=== PATIENT | female | born 1980 | race Caucasian/White ===

== ENCOUNTER 2018-03-02 08:33 | Emergency (ER) | payer MEDICAID ==
[2018-03-02 09:17] LABS: ABSOLUTE BASOPHILS # (AUTO) 0.1 10^3/uL (0.0-0.2); ABSOLUTE EOSINOPHILS # (AUTO) 0.1 10^3/uL (0.0-0.6); ABSOLUTE LYMPHOCYTES (AUTO) 2.2 10^3/uL (0.5-4.7); ABSOLUTE MONOCYTES (AUTO) 0.6 10^3/uL (0.1-1.4); ABSOLUTE NEUT (AUTO) 8.7 10^3/uL (1.7-8.2); BASOPHILS % (AUTO) 1.1 % (0-2); EOSINOPHILS % (AUTO) 0.9 % (0-6); HEMATOCRIT 43.3 % (36.0-47.0); HEMOGLOBIN 14.5 g/dL (12.0-15.5); MEAN CORPUSCULAR HEMOGLOBIN 27.6 pg (27.0-33.4); MEAN CORPUSCULAR HGB CONC 33.5 g/dL (32.0-36.0); MEAN CORPUSCULAR VOLUME 82 fl (80-97); MONOCYTES % (AUTO) 5.2 % (3-13); PLATELET COUNT 277 10^3/uL (150-450); RED BLOOD COUNT 5.26 10^6/uL (3.72-5.28); RED CELL DISTRIBUTION WIDTH 13.6 % (11.5-14.0); SEGMENTED NEUTROPHILS % (AUTO) 73.8 % (42-78); TOTAL CELLS COUNTED % (AUTO) 100 %; WHITE BLOOD COUNT 11.8 10^3/uL (4.0-10.5)
--- NOTE | 2018-03-02 09:17 | ER Document Report ---
ED GI/ - General Chief Complaint: Vag Bleeding, +preg <12wks Stated Complaint: VAGINAL BLEEDING Time Seen by Provider: 03/02/18 09:10 Mode of Arrival: Ambulatory Information source: Patient Notes: Chief complaint: Vaginal bleeding History of complain:( obtained from----patient) 37 years old female with second , 7 weeks, having vaginal spotting and bleeding for the last 2 days. In fact she had a bleed 3 days ago and again today. No abdominal cramps. No nausea vomiting. No constitutional symptoms. Onset: Gradual Duration: 3 days Severity: Mild Quality: Not applicable Context: Exacerbating factor and relieving factors: REVIEW OF SYSTEMS: CONSTITUTIONAL : Denies fever, chills, or sweats. Denies recent illness. EENT: Denies eye, ear, throat, or mouth pain or symptoms. Denies nasal or sinus congestion or discharge. Denies throat, tongue, or mouth swelling or difficulty swallowing. CARDIOVASCULAR: Denies chest pain. Denies palpitations or racing or irregular heart beat. Denies ankle edema. RESPIRATORY: Denies cough, cold, or chest congestion. Denies shortness of breath, difficulty breathing, or wheezing. GASTROINTESTINAL: Denies distention. Denies nausea, vomiting, or diarrhea. Denies blood in vomitus, stools, or per rectum. Denies black, tarry stools. Denies constipation. GENITOURINARY: Denies difficulty urinating, painful urination, burning, frequency, blood in urine, or discharge. FEMALE GENITOURINARY: Denies vaginal bleeding, heavy or abnormal periods, irregular periods. Denies vaginal discharge or odor. MUSCULOSKELETAL: Denies back or neck pain or stiffness. Denies joint pain or swelling. SKIN: Denies rash, lesions or sores. HEMATOLOGIC : Denies easy bruising or bleeding. LYMPHATIC: Denies swollen, enlarged glands. NEUROLOGICAL: Denies confusion or altered mental status. Denies passing out or loss of consciousness. Denies dizziness or lightheadedness. Denies headache. Denies weakness or paralysis or loss of use of either side. Denies problems with gait or speech. Denies sensory loss, numbness, or tingling. Denies seizures. PSYCHIATRIC: Denies anxiety or stress. Denies depression, suicidal ideation, or homicidal ideation. ALL OTHER SYSTEMS REVIEWED AND NEGATIVE. PHYSICAL EXAMINATION: GENERAL: Well-appearing, well-nourished and in no acute distress. HEAD: Atraumatic, normocephalic. EYES: Pupils equal round and reactive to light, extraocular movements intact, conjunctiva are normal. ENT: Nares patent, oropharynx clear without exudates. Moist mucous membranes. NECK: Normal range of motion, supple without lymphadenopathy LUNGS: Breath sounds clear to auscultation bilaterally and equal. No wheezes rales or rhonchi. HEART: Regular rate and rhythm without murmurs ABDOMEN: Soft, nontender, nondistended abdomen. No guarding, no rebound. No masses appreciated. Examination of genitals-deferred Musculoskeletal: Normal range of motion, no pitting or edema. No cyanosis. NEUROLOGICAL: Cranial nerves grossly intact. Normal speech, normal gait. Normal sensory, motor exams PSYCH: Normal mood, normal affect. SKIN: Warm, Dry, normal turgor, no rashes or lesions noted. Dictation was performed using [employer] voice recognition software TRAVEL OUTSIDE OF THE [place] IN LAST 30 DAYS: No - HPI Notes: 03/02/18 09:15 Dictated - Related Data Allergies/Adverse Reactions: No Known Allergies Allergy (Verified 03/02/18 08:34) Past Medical History - General Information source: Patient - Social History Smoking Status: Never Smoker Chew tobacco use (# tins/day): No Frequency of alcohol use: None Drug Abuse: None Lives with: Family Family History: Reviewed & Not Pertinent, Other - Kidney stones run in the family Patient has suicidal ideation: No Patient has homicidal ideation: No Endocrine Medical History: Reports: Hx Diabetes Mellitus Type 2 - IDDM Renal/ Medical History: Denies: Hx Peritoneal Dialysis Review of Systems - Review of Systems Notes: Dictated Physical Exam - Vital signs Vitals: Temp Pulse Resp BP Pulse Ox 98.3 F 104 H 14 130/76 H 98 03/02/18 08:44 03/02/18 08:44 03/02/18 08:44 03/02/18 08:44 03/02/18 08:44 - Notes Notes: Dictated Course - Vital Signs Vital signs: Temp Pulse Resp BP Pulse Ox 98.3 F 104 H 14 130/76 H 98 03/02/18 08:44 03/02/18 08:44 03/02/18 08:44 03/02/18 08:44 03/02/18 08:44 - Laboratory Result Diagrams: 03/02/18 09:03 Laboratory results interpreted by me: 03/02/18 03/02/18 03/02/18 09:03 09:03 09:03 WBC 11.8 H Absolute Neutrophils 8.7 H Beta HCG, Quant 19254.00 H Urine Glucose (UA) >=500 H Urine Ketones TRACE H Urine Blood LARGE H Ur Leukocyte Esterase TRACE H - Diagnostic Test Radiology reviewed: Reports reviewed - Radiology report reviewed, no heart sound activity, 6 feet old yolk sac, subchorionic hemorrhage. Discharge - Discharge Clinical Impression: Threatened affecting intrauterine Condition: Fair Disposition: HOME, SELF-CARE Instructions: Threatened Abortions ( Patients) Referrals: KATIANA SCHAEFFER, MAMIE [NO LOCAL MD] - Follow up as needed
[2018-03-02 09:39] LABS: APPEARANCE,URINE SLIGHTLY-CLOUDY; BILIRUBIN,URINE NEGATIVE (NEGATIVE); COLOR,URINE YELLOW; GLUCOSE, URINE >=500 mg/dL (NEGATIVE); KETONES,URINE TRACE mg/dL (NEGATIVE); LEUKOCYTE ESTERASE,URINE TRACE (NEGATIVE); NITRITE,URINE NEGATIVE (NEGATIVE); PROTEIN,URINE NEGATIVE (NEGATIVE); URINE SPECIFIC GRAVITY 1.024; UROBILINOGEN,URINE NEGATIVE mg/dL (<2.0)
--- NOTE | 2018-03-02 10:50 | RADIOLOGY REPORT (SQ) ---
EXAM DESCRIPTION: U/S OB TRANSVAGINAL W/O DOP COMPLETED DATE/TIME: 03/02/2018 10:32 am REASON FOR STUDY: and vaginal bleeding COMPARISON: None. TECHNIQUE: Endovaginal static and realtime grayscale images acquired of the pelvis. Additional selec rober spectral and color Doppler images recorded. All images stored on PACs. [facility],286 CLINICAL DATES: Last menses 12/24/2017 LIMITATIONS: None. FINDINGS: An intrauterine gestational sac is present containing a yolk sac and tiny embryo. No embr yo cardiac activity was seen by color flow or M-mode Doppler. ULTRASOUND EGA: 6 weeks 0 days ULTRASOUND ALL: 10/30/2015 CRL: 0.38 cm FHR: Not detected. SUBCHORIONIC BLEED: Yes SIZE OF BLEED: 4 x 3 cm UTERUS: No fibroids. Uterus is 10.5 x 7 x 7 cm in size CERVICAL LENGTH: 3 cm Closed. RIGHT ADNEXA: Not visualized due to adnexal bowel gas LEFT ADNEXA: Not visualized due to adnexal bowel gas FREE FLUID: None. OTHER: No other significant finding. IMPRESSION: Intrauterine gestational sac is present containing a yolk sac and tiny embryo without ca rdiac activity identified. Large subchorionic hemorrhage EGA 6 weeks 0 days Trimester of : First - 0 to 13 weeks. TECHNICAL DOCUMENTATION: JOB ID: [id number] [employer]- All Rights Reserved rev Reading location - IP/workstation name: [email or web address]
[2018-03-02 12:17] VITALS: BP 131/84
== END 2018-03-02 12:18 | disposition home or self-care (01) ==
LOC: ER 08:33
DX: O03.9 Complete or unspecified spontaneous abortion without complication (principal); Z3A.01 Less than 8 weeks gestation of pregnancy
CPT/HCPCS: 36415; 76817; 81001; 84702; 85025; 99284

== ENCOUNTER 2018-07-20 07:11 | Emergency (ER) | payer MEDICAID ==
[2018-07-20] MEDS ORDERED: ASPIRIN 81 MG TABLET, CHEWABLE PO ONE (09:38)
[2018-07-20] MEDS ORDERED: NORMAL SALINE 1000 ML 1,000 ML IV ONE (09:39)
[2018-07-20 09:53] LABS: ABSOLUTE BASOPHILS # (AUTO) 0.1 10^3/uL (0.0-0.2); ABSOLUTE LYMPHOCYTES (AUTO) 1.7 10^3/uL (0.5-4.7); ABSOLUTE MONOCYTES (AUTO) 0.6 10^3/uL (0.1-1.4); ABSOLUTE NEUT (AUTO) 9.2 10^3/uL (1.7-8.2); BASOPHILS % (AUTO) 0.6 % (0-2); EOSINOPHILS % (AUTO) 0.4 % (0-6); HEMATOCRIT 42.9 % (36.0-47.0); HEMOGLOBIN 14.6 g/dL (12.0-15.5); MEAN CORPUSCULAR HEMOGLOBIN 27.8 pg (27.0-33.4); MEAN CORPUSCULAR HGB CONC 34.1 g/dL (32.0-36.0); MEAN CORPUSCULAR VOLUME 81 fl (80-97); MONOCYTES % (AUTO) 5.1 % (3-13); PLATELET COUNT 265 10^3/uL (150-450); RED BLOOD COUNT 5.27 10^6/uL (3.72-5.28); RED CELL DISTRIBUTION WIDTH 13.5 % (11.5-14.0); SEGMENTED NEUTROPHILS % (AUTO) 78.9 % (42-78); TOTAL CELLS COUNTED % (AUTO) 100 %; WHITE BLOOD COUNT 11.6 10^3/uL (4.0-10.5)
[2018-07-20 10:12] LABS: ALANINE AMINOTRANSFERASE 30 U/L (9-52); ALBUMIN 4.5 g/dL (3.5-5.0); ALKALINE PHOSPHATASE 82 U/L (38-126); ANION GAP 13 (5-19); ASPARTATE AMINO TRANSFERASE 29 U/L (14-36); BILIRUBIN,DIRECT 0.2 mg/dL (0.0-0.4); BILIRUBIN,TOTAL 0.5 mg/dL (0.2-1.3); BLOOD UREA NITROGEN 8 mg/dL (7-20); CALCIUM 9.7 mg/dL (8.4-10.2); CARBON DIOXIDE 24 mmol/L (22-30); CHLORIDE 99 mmol/L (98-107); CREATINE KINASE 46 U/L (30-135); GLUCOSE 336 mg/dL (75-110); POTASSIUM 4.4 mmol/L (3.6-5.0); SODIUM 136.3 mmol/L (137-145); TOTAL PROTEIN 7.5 g/dL (6.3-8.2)
[2018-07-20 10:23] LABS: CREATINE KINASE MB 0.32 ng/mL (<4.55)
[2018-07-20 10:26] LABS: TROPONIN I < 0.012 ng/mL
--- NOTE | 2018-07-20 11:13 | EKG REPORT ---
SEVERITY:- BORDERLINE ECG - SINUS TACHYCARDIA INFERIOR Q WAVES, PROBABLY NORMAL VARIATION BORDERLINE T ABNORMALITIES, DIFFUSE LEADS : Confirmed by: Dara Stanford 20-Jul-2018 11:12:06
--- NOTE | 2018-07-20 11:46 | RADIOLOGY REPORT (SQ) ---
EXAM DESCRIPTION: VENOUS UNILATERAL LOWER COMPLETED DATE/TIME: 07/20/2018 11:14 am REASON FOR STUDY: left foot swelling COMPARISON: None. TECHNIQUE: Dynamic and static prabhakar scale and color images acquired of the left leg venous system. Se lected spectral images acquired with additional compression and augmentation maneuvers. The contralat eral common femoral vein and saphenofemoral junction were also imaged. Images stored on PACS. LIMITATIONS: None. FINDINGS: LEFT COMMON FEMORAL: Normal phasicity, compression and augmentation. No visualized echogenic material on g ray scale. No defects on color images. FEMORAL: Normal compression and augmentation. No visualized echogenic material on prabhakar scale. No defe cts on color images. POPLITEAL: Normal compression, augmentation. No visualized echogenic material on prabhakar scale. No defec ts on color images. CALF VESSELS: Normal compression, augmentation. No visualized echogenic material on prabhakar scale. No de fects on color images. GSV and SSV: Normal compression, augmentation. No visualized echogenic material on prabhakar scale. No def ects on color images. ANY DEEP VENOUS INSUFFICIENCY: No reflux on Valsalva ANY EVIDENCE OF POPLITEAL CYST: No. OTHER: No other significant finding. RIGHT COMMON FEMORAL VEIN AND SAPHENOFEMORAL JUNCTION: Normal phasicity, compression and augmentation. No visualized echogenic material on prabhakar scale. No de fects on color images. IMPRESSION: NO EVIDENCE OF DVT OR SVT IN THE LEFT LEG. TECHNICAL DOCUMENTATION: JOB ID: [id number] [employer]- All Rights Reserved Reading location - IP/workstation name: [email or web address]
--- NOTE | 2018-07-20 12:13 | RADIOLOGY REPORT (SQ) ---
EXAM DESCRIPTION: CTA CHEST COMPLETED DATE/TIME: 07/20/2018 11:54 am REASON FOR STUDY: SOB, tachycardia, r/o PE COMPARISON: None. TECHNIQUE: CT scan of the chest performed using helical scanning technique with dynamic intravenous contrast injection. Images reviewed with lung, soft tissue and bone windows. Reconstructed coronal and sagittal MPR images reviewed. Additional 3 dimensional post-processing performed to develop Maximal Intensity Projection images (SC P). All images stored on PACS. All CT scanners at this facility use dose modulation, iterative reconstruction, and/or weight based d osing when appropriate to reduce radiation dose to as low as reasonably achievable (ALARA). [facility]: Dose Right [facility]: CareDose [facility]: Dose Right [facility]: Teradose 4D [facility]: BadAbroad CONTRAST TYPE AND DOSE: contrast/concentration: Isovue 350.00 mg/ml; Total Contrast Delivered: 86.0 ml; Total Saline Delivered: 80.0 ml Contrast bolus adequate for pulmonary arteries and aorta. RENAL FUNCTION: GFR > 60. RADIATION DOSE: CT Rad equipment meets quality standard of care and radiation dose reduction techniq ues were employed. CTDIvol: 7.4 - 37.2 mGy. DLP: 1380 mGy-cm. . LIMITATIONS: None. FINDINGS: LUNGS AND PLEURA: No masses, infiltrates, or pneumothorax. No pleural effusions or pleura l calcifications. AORTA AND GREAT VESSELS: No aneurysm. No dissection. HEART: No pericardial effusion. No significant coronary artery calcifications. PULMONARY ARTERIES: No emboli visualized in the main pulmonary arteries or the segmental branches. HILAR AND MEDIASTINAL STRUCTURES: No identified masses or abnormal nodes. HARDWARE: None in the chest. UPPER ABDOMEN: No significant findings. Limited exam. THYROID AND OTHER SOFT TISSUES: No masses. No adenopathy. BONES: No acute or significant finding. 3D MIPS: Confirm above findings. OTHER: No other significant finding. IMPRESSION: NORMAL CTA OF THE CHEST. NO PULMONARY EMBOLI. COMMENT: Quality ID # [id number]: Final reports with documentation of one or more dose reduction techniques (e.g., Automated exposure control, adjustment of the mA and/or kV according to patient size, use of iterative reconstruction technique) TECHNICAL DOCUMENTATION: JOB ID: [id number] 1999 [employer] ([employer])- All Rights Reserved Reading location - IP/workstation name: [email or web address]
[2018-07-20 14:03] VITALS: BP 140/92
--- NOTE | 2018-07-20 16:21 | ER Document Report ---
Entered by ELIUD AVALOS SCRIBE 07/20/18 0951 Acting as scribe for:ANDRE MACIEL DO ED Cardiac - General Chief Complaint: Chest Pain Stated Complaint: CHEST PAIN Time Seen by Provider: 07/20/18 08:26 Information source: Patient Notes: 38-year-old female who presents to the emergency department today with complaints of lateral chest wall pain with an associated near syncopal episode. Patient states that her chest pain is exacerbated with upper extremity movement and exertion. Patient states she had a cold last week with a cough that has since subsided. Patient has had associated nausea, vomiting, heart palpitations, and left lower extremity swelling. Patient denies any cough cur rently, fevers, abdominal pain, or recent travel. TRAVEL OUTSIDE OF THE [place] IN LAST 30 DAYS: No - Related Data Allergies/Adverse Reactions: No Known Allergies Allergy (Verified 07/20/18 07:12) Past Medical History - General Information source: Patient - Social History Smoking Status: Never Smoker Cigarette use (# per day): No Frequency of alcohol use: None Drug Abuse: None Lives with: Family Family History: Reviewed & Not Pertinent, Other - Kidney stones run in the family Endocrine Medical History: Reports: Hx Diabetes Mellitus Type 2 - IDDM Past Surgical History: Reports: Hx Section Review of Systems - Review of Systems Constitutional: denies: Fever EENT: No symptoms reported Cardiovascular: See HPI, Chest pain, Palpitations, Syncope - near Respiratory: denies: Cough Gastrointestinal: See HPI, Nausea, Vomiting. denies: Abdominal pain Genitourinary: No symptoms reported Female Genitourinary: No symptoms reported Musculoskeletal: No symptoms reported Skin: No symptoms reported Hematologic/Lymphatic: No symptoms reported Neurological/Psychological: No symptoms reported -: Yes All other systems reviewed and negative Physical Exam - Vital signs Vitals: Temp Pulse Resp BP Pulse Ox 99.1 F 111 H 18 140/86 H 100 07/20/18 07:30 07/20/18 07:30 07/20/18 07:30 07/20/18 07:30 07/20/18 07:30 - Notes Notes: PHYSICAL EXAM GENERAL: Alert, interacts well. No acute distress. Pulse oximeter at bedside shows saturation of 99% with good waveform on room air, no hypoxia per my interpretation. HEAD: Normocephalic, atraumatic. EYES: Pupils equal, round, and reactive to light. Extraocular movements intact. ENT: Oral mucosa moist, tongue midline. NECK: Full range of motion. Supple. Trachea midline. LUNGS: Clear to auscultation bilaterally, no wheezes, rales, or rhonchi. No respiratory distress. HEART: Tachycardic into the 120s with a normal rhythm. No murmurs, gallops, or rubs. ABDOMEN: Soft, non-tender. Non-distended. Bowel sounds present in all 4 qu adrants. No guarding, rigidity, or rebound. EXTREMITIES: Moves all 4 extremities spontaneously. No edema, radial and dorsalis pedis pulses 2/4 bilaterally. No cyanosis. NEUROLOGICAL: Alert and oriented x3. Normal speech. PSYCH: Normal affect, normal mood. SKIN: Warm, dry, normal turgor. No rashes or lesions noted. Course - Re-evaluation Re-evalutation: 07/20/18 13:33 CBC shows mild leukocytosis, CMP shows mildly low sodium at 136.3, cardiac enzymes negative, hCG negative, CT angiogram of the chest does not show PE or pneumonia, this was ordered given the shortness of breath, leg swelling and tachycardia, venous Doppler study did not show a DVT either. Cardiac enzymes are negative despite the pressure on her chest. Patient is feeling much better after sitting in the bed and resting, she has but not been hypoxic since she has been here. Patient will be discharged to home. Suspect that this is more musculoskeletal in etiology and patient will be given muscle relaxers to help as well as a cough suppressant in the form of Tessalon Perles. 07/20/18 16:21 Patient knows she is a diabetic. She was encouraged to follow-up with primary care physician as an outpatient for outpatient treatment. No medications were initiated here. - Vital Signs Vital signs: Temp Pulse Resp BP Pulse Ox 99.1 F 111 H 26 H 140/92 H 98 07/20/18 07:30 07/20/18 07:30 07/20/18 13:00 07/20/18 13:00 07/20/18 13:00 - Laboratory Result Diagrams: 07/20/18 09:16 07/20/18 09:16 Laboratory results interpreted by me: 07/20/18 07/20/18 09:16 09:16 WBC 11.6 H Seg Neutrophils % 78.9 H Absolute Neutrophils 9.2 H Sodium 136.3 L Creatinine 0.41 L Glucose 336 H - EKG Interpretation by Me Additional EKG results interpreted by me: 07/20/18 13:38 EKG shows sinus tachycardia at a rate of 115, normal axis, normal intervals, poor R wave progression for possible anterior scar prompted acute coronary syndrome workup, no ST segment elevations or depressions, there are T wave inversions noted in lead III and aVF F as well as flattening in V3 through V5 and inversions in V6 per my interpretation. Discharge - Discharge Clinical Impression: Chest wall pain Condition: Stable Disposition: HOME, SELF-CARE Additional Instructions: Chest Wall Pain Your chest pain has been diagnosed as coming from the chest wall. This is often caused by straining the muscles or joints in the chest during physical activity, direct trauma, coughing, or vigorous vomiting. Persons with arthritis are especially prone to this type of pain, due to inflammation of the cartilage joints near the breast bone. Occasionally, no cause can be found. Rest from strenuous physical activity. This kind of chest pain is usually made worse by movement of the chest. Depending on the symptoms, we may prescribe medicine for pain, muscle relaxation, and antiinflammatory effects. If the pain is new, and seems to be due to muscle strain, cold packs can help. Otherwise, apply gentle warmth to the painful area for 15 minutes every hour or two. You should contact the doctor immediately if things change. Further evaluation is needed if you develop a fever or cough, if the nature of the pain changes, or if you become short of breath. Prescriptions: Benzonatate [Tessalon Perles 100 mg Capsule] 100 mg PO ASDIR PRN #40 capsule PRN Reason: Methocarbamol [Robaxin 750 mg Tablet] 750 mg PO ASDIR PRN #40 tablet PRN Reason: Forms: Return to Work Scribe Attestation: 07/20/18 16:21 I personally performed the services described in the documentation, reviewed and edited the documentation which was dictated to the scribe in my presence, and it accurately records my words and actions. I personally performed the services described in the documentation, reviewed and edited the documentation which was dictated to the scribe in my presence, and it accurately records my words and actions.
== END 2018-07-20 13:30 | disposition home or self-care (01) ==
LOC: ER 07:11
DX: R07.9 Chest pain, unspecified (principal); R55 Syncope and collapse; R05 Cough; R11.2 Nausea with vomiting, unspecified; R00.2 Palpitations; M79.89 Other specified soft tissue disorders; E11.9 Type 2 diabetes mellitus without complications; Z79.4 Long term (current) use of insulin
CPT/HCPCS: 93005; 99284; 36415; 82553; 82550; 84703; 85025; 80053; 84484; 93971; 71275; 93010; J7030